=== PATIENT | female | born 1945 | race Caucasian/White ===

== ENCOUNTER 2019-09-18 05:10 | Day surgery (SDC) ==
[2019-09-11 10:57] LABS: BASO# 0.02 X1000 (0.0-0.2); BASO% 0.3 % (0.0-0.8); EOS# 0.29 X1000 (0.0-0.7); EOS% 4.5 % (0.0-10.0); HEMATOCRIT 38.6 % (37.0-47.0); HEMOGLOBIN 12.4 g/dL (12.0-16.0); LYMPH# 2.11 X1000 (1.2-3.4); LYMPH% 32.9 % (20.5-51.1); MCH 28.1 PG (27-31); MCHC 32.1 g/dL (33-37); MCV 87.5 FL (81-99); MONO# 0.63 X1000 (0.11-0.59); MONO% 9.8 % (1.7-9.3); NEUT# 3.36 X1000 (1.4-6.5); NEUT% 52.5 % (42.2-75.2); PLT 173 X1000 (130-400); RBC 4.41 XMIL (4.2-5.4); WBC 6.41 X1000 (4.8-10.8)
[2019-09-11 11:09] LABS: CALCIUM 11.3 mg/dL (8.8-10.2); POTASSIUM 4.4 mmol/L (3.5-5.1)
[2019-09-18] MEDS ORDERED: VANCOMYCIN 1 GM/NS 1 GM/250 ML IVPB ONE (05:34)
[2019-09-18] MEDS ORDERED: LR 1,000 ML ONE (05:34)
[2019-09-18] MEDS ORDERED: XYLOCAINE 1%/EPI 1:100,000 ONE (06:26)
[2019-09-18] MEDS ORDERED: FENTANYL ONE (06:39)
[2019-09-18] MEDS ORDERED: DIPRIVAN 1% ONE (06:39)
[2019-09-18] MEDS ORDERED: ROBINUL ONE ×2 (06:44→07:25)
[2019-09-18] MEDS ORDERED: QUELICIN (DOSE) ONE (06:44)
[2019-09-18] MEDS ORDERED: XYLOCAINE-MPF 2% ONE (06:44)
[2019-09-18] MEDS ORDERED: EPHEDRINE ONE (07:12)
[2019-09-18] MEDS ORDERED: ZOFRAN ONE (07:25)
[2019-09-18] MEDS ORDERED: NEOSTIGMINE ONE (07:25)
[2019-09-18] MEDS ORDERED: ZEMURON ONE (07:25)
[2019-09-18] MEDS ORDERED: DECADRON ONE (07:25)
[2019-09-18] MEDS ORDERED: TYLENOL PO PRN (10:50)
[2019-09-18] MEDS ORDERED: ZOFRAN IV PRN (10:51)
[2019-09-18] MEDS ORDERED: D50W SYRINGE IV PRN (11:00)
--- NOTE | 2019-09-18 15:34 | OPERATIVE NOTE ---
PROCEDURE DATE: 09/18/2019 PREOPERATIVE DIAGNOSIS: Primary hyperparathyroidism. POSTOPERATIVE DIAGNOSIS: Primary hyperparathyroidism. PRINCIPLE PROCEDURE: Parathyroidectomy. SURGEON: Barbara Bagley MD. RENTAL SALES REPRESENTATIVE: Mik Huston MD ANESTHESIA: General anesthesia in addition to local anesthetic. ESTIMATED BLOOD LOSS: 20 mL. DRAINS: None. INDICATIONS: Ms. Shannon Echeverria is a 74-year-old white female who is a patient of Dr. Guy. It was noticed in 2017 that her serum calcium was elevated. PTH was slightly elevated at that time. We have watched her over the last 2 years and she has had an increase of her calcium and PTH. Her latest calcium was 11.2, PTH is 125. It was felt that she had primary hyperparathyroidism and parathyroidectomy was recommended. Nuclear medicine scan suggested a right-sided adenoma. FINDINGS: Her right superior parathyroid gland was noticeably enlarged. We identified her right inferior parathyroid gland and it appeared to be normal. We felt we identified the right recurrent laryngeal nerve along its length and we preserved it. We removed all the parathyroid tissue of the right superior parathyroid gland. PTH level intraoperatively after removal of the gland and waiting 10 minutes was 40, with the preop parathyroid level of 125. We did not dissect the left side of the thyroid gland. DESCRIPTION OF PROCEDURE: The patient was brought to the operating room, placed supine, received general anesthesia, was intubated. We then placed a roll underneath her shoulders to extend her neck. She was placed in reverse Trendelenburg and her anterior neck was prepped and draped within the sterile field. She received vancomycin preoperatively because she had a penicillin allergy. We used a 6 cm curvilinear incision centered at the middle of her neck, just above the clavicles. I made my incision line with a silk tie and then made the incision after local anesthetic was placed with a 15 blade scalpel. It was carried down through the skin and subcutaneous tissue with cautery. We transected the platysma muscle and then created a subplatysmal plane both superiorly and inferiorly, mostly using the cautery. We used a Gelpi self-retaining retraction but we also used a handheld small Rich retractor. We identified the midline initially inferior to the isthmus. We identified the trachea and then divided the strap muscles using cautery within the midline from inferior to superior. We then dissected the strap muscles carefully off the right thyroid lobe, trying to maintain a bloodless field so that we could easily identify the parathyroid glands. Dr. Huston retracted the right thyroid gland medially and superiorly as we did the dissection. We came across small vessels with the LigaSure. Initially, we identified the right inferior parathyroid gland right along the inferior pole of the right thyroid. It appeared to be normal in size and appearance. We did place a small clip involving this parathyroid so that we could coral it. We then proceeded more superiorly to find the right superior parathyroid gland. We found this parathyroid gland 1 cm inferior to the superior pole and it appeared to be slightly enlarged. As I dissected it, it became larger more posteriorly and it was clearly the parathyroid adenoma. We carefully dissected it from underneath the inferior thyroid artery. We took some branches of the inferior thyroid artery that were supplying this parathyroid adenoma. We made sure that all parathyroid tissue was dissected en bloc and removed from the right side of the neck. This was the area we identified the recurrent laryngeal nerve and we preserved it throughout our dissection, we stayed close to the parathyroid gland. We removed the parathyroid gland and sent it to the pathologist for permanent section. We waited 10 minutes and dorys a PTH level from the right internal jugular vein and sent it to the lab and it was reported as 40. We felt that we identified the parathyroid adenoma. We felt we did not have to proceed with a left- sided dissection. I closed the wound in layers. The first layer was the strap muscles were reapproximated in the midline with interrupted 3-0 Vicryl stitches. The platysma muscle was reapproximated with interrupted 3-0 Vicryl stitches. I closed the skin with 4-0 Monocryl subcuticular stitch and then some glue for the wound was placed on there. She tolerated the procedure well with plans for her to go the recovery room and then be admitted overnight. It must be noted that Dr. Mik Huston was present throughout the case. His presence was necessary to help with retraction of the right thyroid lobe and also identification of the abnormal parathyroid gland. cc: MD Carmen Livingston MD
[2019-09-18] MEDS: HUMULIN R SUBQ SCH ×3 (16:44→21:00)
[2019-09-18] MEDS: PERCOCET-5 PO PRN (16:44)
[2019-09-18] MEDS ORDERED: TUMS EXTRA STRENGTH PO ONE (16:48)
[2019-09-18] MEDS ORDERED: TUMS PO SCH (17:00)
[2019-09-18] MEDS: PERIDEX MT SCH (20:54)
[2019-09-18] MEDS: GLUCOPHAGE PO SCH (20:55)
[2019-09-18] MEDS: COREG PO SCH (20:55)
[2019-09-18] MEDS ORDERED: LIPITOR PO SCH (21:00)
[2019-09-18 21:10] LABS: URINE SOURCE CLEAN CATCH
[2019-09-18 21:14] LABS: BILIRUBIN URINE NEGATIVE (NEGATIVE); BLOOD URINE NEGATIVE (NEGATIVE); COLOR YELLOW; GLUCOSE URINE NEGATIVE (NEGATIVE); KETONE URINE NEGATIVE (NEGATIVE); LEUKOCYTES URINE NEGATIVE (NEGATIVE); NITRITE URINE NEGATIVE (NEGATIVE); PROTEIN URINE NEGATIVE (NEGATIVE); SP GRAVITY URINE 1.013; TURBIDITY URINE CLEAR (CLEAR); UROBILINOGEN URINE NORMAL (NORMAL)
[2019-09-18 21:15] LABS: UR EPITHELIAL CELLS <10 /HPF (<10); URINE BACTERIA NEGATIVE /HPF; URINE RBC <10 /HPF (<10); URINE WBC <10 /HPF (<10)
[2019-09-19] MEDS: HUMULIN R SUBQ SCH ×2 (06:31→11:19)
[2019-09-19] MEDS: PERCOCET-5 PO PRN (06:31)
[2019-09-19] MEDS: SYNTHROID PO SCH ×2 (06:32→09:14)
[2019-09-19 07:58] VITALS: BP 118/54
[2019-09-19] MEDS ORDERED: KLOR-CON PO SCH (09:00)
[2019-09-19] MEDS ORDERED: LASIX PO SCH (09:00)
[2019-09-19] MEDS ORDERED: TUMS PO SCH (09:00)
[2019-09-19] MEDS ORDERED: COZAAR PO SCH (09:00)
[2019-09-19] MEDS ORDERED: ZYLOPRIM PO SCH (09:00)
[2019-09-19] MEDS: COREG PO SCH (09:12)
[2019-09-19] MEDS: PERIDEX MT SCH (09:12)
[2019-09-19] MEDS: GLUCOPHAGE PO SCH (09:12)
--- NOTE | 2019-09-19 15:02 | GENERAL SURGERY PROGRESS NOTE ---
DATE: 09/19/2019 SUBJECTIVE: No tingling overnight. Feels well. No pain. Voice normal. No fevers. No tachycardia. LABORATORY DATA: Her labs are pending this morning. ASSESSMENT AND PLAN: This is a 74-year-old female patient of Dr. Bagley, status post parathyroidectomy for primary hyperparathyroidism. We will see what her calcium is. She has a prescription from Dr. Bagley for 1000 mg t.i.d. of calcium carbonate. We may go up on this or keep her on that depending on what her calcium level is this morning. I have given her instructions on calcium management, home signs and symptoms of hypocalcemia. She will call with any issues. cc: MD Barbara Villegas MD
== END 2019-09-19 11:39 | disposition home or self-care (01) ==
LOC: OR 05:10 → 4N 05:10 → OR 09-19 11:39
PROVIDERS: ATTEND Surgery